=== PATIENT | male | born 1950 | race Asian ===

== ENCOUNTER → 2020-04-24 08:39 | Outpatient (CLI) | payer OTHER, SELFPAY ==
--- NOTE | 2020-04-24 | DI.RAD.S_ITS ---
PROCEDURE: XR KNEE LT 3V INDICATIONS: left knee pain TECHNIQUE: 3 views of the knee were acquired. COMPARISON: None. FINDINGS: Bones: No fractures or dislocations. No suspicious bony lesions. Severe narrowing of the medial femoral tibial joint and moderate narrowing of the patellofemoral knee joint. Tricompartmental periarticular osteophyte formation. Soft tissues: Small joint effusion. No suspicious soft tissue calcifications. IMPRESSION: Tricompartmental knee joint degeneration, severe involving the medial femorotibial joint. Dictated by: Armando Cunningham [facility] Interpreted: Matthew Soria MD on 04/24/2020 at 9:17 Approved by: Matthew Soria M.D. on 04/24/2020 at 14:50
== END ==
PROVIDERS: PCP Family Medicine; Referring Provider Family Medicine; Visit Provider Family Medicine
DX: M25.562 Pain in left knee (principal); M17.12 Unilateral primary osteoarthritis, left knee
CPT/HCPCS: 73562

== ENCOUNTER → 2020-06-30 08:51 | Outpatient (CLI) | payer OTHER, SELFPAY ==
[2020-06-30 10:16] LABS: COVID19 -Nasal RAPID Negative (Negative)
== END ==
PROVIDERS: Physician Assistant; PCP Family Medicine; Visit Provider Physician Assistant
DX: Z20.822 Contact with and (suspected) exposure to COVID-19 (principal)
CPT/HCPCS: 87635

== ENCOUNTER 2020-07-01 06:21 | Day surgery (SDC) | payer OTHER, SELFPAY ==
[2020-07-01] MEDS: PROPARACAINE 0.5% OPHTH SOL 2 DROPS EYE-OP (07:07)
[2020-07-01] MEDS: CATARACT EYE COMPOUND (10 DROPS/SYRINGE) 3 DROPS EYE-OP (07:07)
[2020-07-01 07:14] VITALS: BP 151/97; PULSE 73; RESP 16; TEMP 36.5; O2SAT 98; BMI 24.7
[2020-07-01] MEDS: LACTATED RINGERS 1,000 ML 42 ML IV (07:30)
--- NOTE | 2020-07-01 07:40 | PM.PREOP ---
Pre-operative Note Interval Note History & Physical reviewed/Exam performed by Physician: Yes Changes to H&P: No
--- NOTE | 2020-07-01 07:40 | PM.OP.1 ---
Operative Date/Time/Diagnoses Pre-op diagnosis: Nuclear Cataract Left eye Post-op diagnosis: same Procedure & Clinicians Same procedure as scheduled: Yes Surgeon: Noah Porter Anesthesia Type: MAC +/- and Sedation Operative Notes Procedure in detail: Patient brought to the operating suite. Underwent general anesthesia with LMA due to language barrier. Tetracaine drops placed in the left eye. Patient was prepped and draped in sterile manner. Wire lid speculum was placed in the eye. Betadine drops were placed on the eye. This was irrigated. Lidocaine jelly was placed on the eye. A paracentesis port was created with a side-port blade. 0.1 mL 1% preservative free lidocaine was injected into the anterior chamber. The anterior chamber was deepened with viscoelastic. 2.6 mm keratome was used to create a temporal clear corneal incision. Cystotome and Utrata forceps were used to create continuous tear capsulorrhexis. Balanced salt solution was used to hydro dissect the nucleus. The phacoemulsification handpiece was inserted and the nucleus was removed using the stop and chop technique. The irrigation aspiration handpiece was inserted and the remaining cortex was removed. Anterior chamber was deepened with viscoelastic. An Zuñiga ZCB00 intraocular lens with a power of 23.5 was injected into the capsular bag. Irrigation aspiration handpiece was inserted and the remaining viscoelastic was removed. Incision was hydrated with balanced salt solution and found to be leak free with pressure with Weck-Hoa sponges. 0.1 mL Vigamox injected anterior chamber. 0.3 mL Kenalog 10 mg was injected subconjunctivally. Lid speculum was removed. The patient left the operating room in excellent condition. Complications: none Post-operative Condition: stable Disposition: same day surgery
[2020-07-01] MEDS: CHONDROIDTIN/SOD HYALURONATE 1.05 ML SYRINGE INTRAOCULA (07:56)
[2020-07-01] MEDS: LIDOCAINE JELLY 2% 5 ML 1 APPLIC TOP (07:56)
[2020-07-01] MEDS: MOXIFLOXACIN INJ 5 MG/ML VIAL EYE-OP (07:57)
[2020-07-01] MEDS: PHENYLEPHRINE/LIDOCAINE VIAL (OR) 0.2 ML EYE-OP (07:57)
[2020-07-01] MEDS: BALANCED SALT IRRIG SOLN NO.2 500 ML, EPINEPHrine 1 MG IRR (07:58)
[2020-07-01] MEDS: TETRACAINE 0.5% OPHTH DROPS 4 ML 2 DROPS EYE-OP (07:58)
[2020-07-01] MEDS: TRIAMCINOLONE 50 MG/5 ML VIAL INJ (07:58)
[2020-07-01 08:12] VITALS: BP 101/74; PULSE 70; RESP 18; TEMP 36.2; O2SAT 95
[2020-07-01 08:17] VITALS: BP 137/87; PULSE 70; RESP 16; O2SAT 96
[2020-07-01 08:22] VITALS: BP 141/100; PULSE 69; RESP 15; O2SAT 96
[2020-07-01 08:28] VITALS: BP 141/93; PULSE 67; RESP 14; O2SAT 96
--- NOTE | 2020-07-01 08:33 | SUR.PHASEI ---
Daughter at bedside for interpretation. Patient denies pain or nausea. Offered beverage but patient declines. Patient states he is ready to go home. All discharge paperwork given to daughter and all questions answered. VSS.
[2020-07-01 08:34] VITALS: BP 139/92; PULSE 68; RESP 14; TEMP 36.1; O2SAT 96
== END 2020-07-01 08:54 | disposition home or self-care (01) ==
PROVIDERS: PCP Family Medicine; Referring Provider Family Medicine; Visit Provider Ophthalmology
PROC: (CPT 66984; principal; 2020-07-01 07:45)
DX: H25.12 Age-related nuclear cataract, left eye (principal); I10 Essential (primary) hypertension
CPT/HCPCS: 66984; J0171; J3301

== ENCOUNTER → 2020-07-14 13:44 | Outpatient (CLI) | payer OTHER, SELFPAY ==
[2020-07-14 14:56] LABS: COVID19 -Nasal RAPID Negative (Negative)
== END ==
PROVIDERS: PCP Family Medicine; Visit Provider Physician Assistant
DX: Z20.822 Contact with and (suspected) exposure to COVID-19 (principal)
CPT/HCPCS: 87635

== ENCOUNTER 2020-07-15 06:51 | Day surgery (SDC) | payer OTHER, SELFPAY ==
[2020-07-15] VITALS (7 sets, daily range): BP systolic 97–136; BP diastolic 72–92; PULSE 62–73; RESP 14–16; TEMP 36.2–36.5; O2SAT 94–97; BMI 25.7
[2020-07-15] MEDS: PROPARACAINE 0.5% OPHTH SOL 2 DROPS EYE-OP (07:28)
[2020-07-15] MEDS: CATARACT EYE COMPOUND (10 DROPS/SYRINGE) 3 DROPS EYE-OP (07:28)
[2020-07-15] MEDS: LACTATED RINGERS 1,000 ML 42 ML IV (08:00)
--- NOTE | 2020-07-15 08:07 | PM.PREOP ---
Pre-operative Note Interval Note History & Physical reviewed/Exam performed by Physician: Yes Changes to H&P: No
--- NOTE | 2020-07-15 08:07 | PM.OP.1 ---
Operative Date/Time/Diagnoses Pre-op diagnosis: Nuclear cataract right eye Procedure & Clinicians Procedure: Cataract Surgery Same procedure as scheduled: Yes Surgeon: Noah Porter Anesthesia Type: MAC +/- and Sedation Operative Notes Procedure in detail: Patient brought to the operating suite. He underwent general anestheisa with LMA. Tetracaine drops placed in the right eye. Patient was prepped and draped in sterile manner. Wire lid speculum was placed in the eye. Betadine drops were placed on the eye. This was irrigated. Lidocaine jelly was placed on the eye. A paracentesis port was created with a side-port blade. 0.1 mL 1% preservative free lidocaine was injected into the anterior chamber. The anterior chamber was deepened with viscoelastic. 2.6 mm keratome was used to create a temporal clear corneal incision. Cystotome and Utrata forceps were used to create continuous tear capsulorrhexis. Balanced salt solution was used to hydro dissect the nucleus. The phacoemulsification handpiece was inserted and the nucleus was removed using the stop and chop technique. The irrigation aspiration handpiece was inserted and the remaining cortex was removed. Anterior chamber was deepened with viscoelastic. An Zuñiga ZCB00 intraocular lens with a power of 23.0 was injected into the capsular bag. Irrigation aspiration handpiece was inserted and the remaining viscoelastic was removed. Incision was hydrated with balanced salt solution and found to be leak free with pressure with Weck-Hoa sponges. 0.1 mL Vigamox injected anterior chamber. 0.3 mL Kenalog 10 mg was injected subconjunctivally. Lid speculum was removed. The patient left the operating room in excellent condition. Complications: none Post-operative Condition: stable Disposition: same day surgery
[2020-07-15] MEDS: LIDOCAINE JELLY 2% 5 ML 1 APPLIC TOP (08:34)
[2020-07-15] MEDS: CHONDROIDTIN/SOD HYALURONATE 1.05 ML SYRINGE INTRAOCULA (08:34)
[2020-07-15] MEDS: TETRACAINE 0.5% OPHTH DROPS 4 ML 2 DROPS EYE-OP (08:35)
[2020-07-15] MEDS: TRIAMCINOLONE 50 MG/5 ML VIAL INJ (08:35)
[2020-07-15] MEDS: MOXIFLOXACIN INJ 5 MG/ML VIAL EYE-OP (08:35)
[2020-07-15] MEDS: PHENYLEPHRINE/LIDOCAINE VIAL (OR) 0.2 ML EYE-OP (08:35)
[2020-07-15] MEDS: BALANCED SALT IRRIG SOLN NO.2 500 ML, EPINEPHrine 1 MG IRR (08:36)
== END 2020-07-15 09:16 | disposition home or self-care (01) ==
PROVIDERS: PCP Family Medicine; Referring Provider Ophthalmology; Visit Provider Ophthalmology
PROC: (CPT 66984; principal; 2020-07-15 08:15)
DX: H25.11 Age-related nuclear cataract, right eye (principal); I10 Essential (primary) hypertension
CPT/HCPCS: 66984; J0171; J2704; J3301